=== PATIENT | female | born 1990 | race Caucasian/White ===

== ENCOUNTER 2018-06-19 09:07 | Emergency (ER) | payer BC ==
--- NOTE | 2018-06-19 09:17 | UC ---
Complaint Female HPI - HPI Summary HPI Summary: Pt with dysuria, urgency, frequency progressive x 3 days. No n/v. No abd pain. no back pain. No vaginal discharge, itching, burning. Pt with h/o pyelo several years ago. No UTI x 2 years. No other complaints Pt's medications reviewed this visit - History Of Current Complaint Stated Complaint: URINARY Hx Obtained From: Patient ?: No Onset/Duration: Gradual Onset Timing: Constant Severity Initially: Mild Severity Currently: Mild Pain Intensity: 2 - Allergies/Home Medications Allergies/Adverse Reactions: Allergies Allergy/AdvReac Type Severity Reaction Status Date / Time No Known Allergies Allergy Verified 06/19/18 09:23 Home Medications: Home Medications Lurasidone(*) [Latuda] 20 mg PO DAILY 06/19/18 [History Confirmed 06/19/18] Norgestimate-Ethinyl Estradiol [Ortho Tri-Cyclen Lo Tablet] 1 each PO DAILY 06/29 [History Confirmed 06/19/18] Pumpkin Seed Extract/Soy Germ [Azo Bladder Control Capsule] 1 tab PO ONCE [History Confirmed 06/19/18] PMH/Surg Hx/FS Hx/Imm Hx Previously Healthy: Yes - Surgical History Surgical History: None - Family History Known Family History: Positive: Other - non contributory - Social History Occupation: Employed Full-time - HR at [employer] Lives: With Family Alcohol Use: Occasionally Smoking Status (MU): Never Smoked Tobacco Review of Systems Constitutional: Negative Genitourinary: Dysuria, Hematuria, Urgency All Other Systems Reviewed And Are Negative: Yes Physical Exam - Summary Physical Exam Summary: Vital Signs Reviewed: Yes A+Ox3, no distress Eyes: Conjunctiva Clear ENT: Hearing grossly normal neck: supple Respiratory: Positive: No respiratory distress, No accessory muscle use CTA throughout no w/r Cardiovascular: skin color reflect adequate perfusion RRR nl s1 s2 abd: soft + BS no guarding, no rebound No CVA Musculoskeletal Exam: PACHECO x 4 without difficulty Neurological: Positive: Alert, ambulatory without difficulty Psychological: Positive: Normal Response To Family Skin: Positive: no rash, no ecchymosis Triage Information Reviewed: Yes Complaint Female Dx - Course Course Of Treatment: Patient presents with dysuria, urgency, and frequency progressive for 3 days. Patient without nausea vomiting. No fevers or chills. No back pain. Vital signs reviewed. Exam is not concerning. Urinalysis consistent with UTI. We'll prescribe Pyridium. We'll prescribe Keflex. Urine sent for culture. Motrin Tylenol. Hydrate. Return precautions discussed. Patient comfortable in agreement with plan. - Differential Dx/Diagnosis Provider Diagnoses: dysuria Discharge - Sign-Out/Discharge Documenting (check all that apply): Patient Departure - Discharge Plan Condition: Stable Disposition: HOME Prescriptions: Cephalexin CAP* [Keflex 500 CAP*] 500 mg PO BID #14 cap Phenazopyridine TAB* [Pyridium 100 mg TAB*] 100 mg PO TID PRN #9 tab PRN Reason: burning with urination Patient Education Materials: Urinary Tract Infection in Women (ED) Referrals: No Primary Care Phys,NOPCP [Primary Care Provider] - Additional Instructions: - stay well hydrated - drink plenty of non-alcoholic, non caffinated beverages - your urine will be further tested - if you require any changes to your treatment, we will contact you - this usually take 2 days - Contact your primary doctor to arrange a follow-up appointment next week. Contact your doctor or return with questions or concerns - Take your antibiotics exactly as prescribed until gone - Take pyridium as prescribed for discomfort. This will make your urine blaze orange - this is normal - Okay to alternate ibuprofen (Advil, Motrin) and Tylenol every 3 hours for pain. Take with food - Call your doctor or return with questions or concerns - Billing Disposition and Condition Condition: STABLE Disposition: Home
[2018-06-19 09:25] VITALS: BP 109/60
--- NOTE | 2018-06-20 16:19 | UC ---
- Progress Note Progress Note: > staph saprophyticus Pt on keflex please call to ensure improving - no routine sensitivities performed [facility] 06/20/18 [facility] Discharge - Sign-Out/Discharge Documenting (check all that apply): Post-Discharge Follow Up - Discharge Plan Condition: Stable Disposition: HOME Prescriptions: Cephalexin CAP* [Keflex 500 CAP*] 500 mg PO BID #14 cap Phenazopyridine TAB* [Pyridium 100 mg TAB*] 100 mg PO TID PRN #9 tab PRN Reason: burning with urination Patient Education Materials: Urinary Tract Infection in Women (ED) Referrals: No Primary Care Phys,NOPCP [Primary Care Provider] - Additional Instructions: - stay well hydrated - drink plenty of non-alcoholic, non caffinated beverages - your urine will be further tested - if you require any changes to your treatment, we will contact you - this usually take 2 days - Contact your primary doctor to arrange a follow-up appointment next week. Contact your doctor or return with questions or concerns - Take your antibiotics exactly as prescribed until gone - Take pyridium as prescribed for discomfort. This will make your urine blaze orange - this is normal - Okay to alternate ibuprofen (Advil, Motrin) and Tylenol every 3 hours for pain. Take with food - Call your doctor or return with questions or concerns - Billing Disposition and Condition Condition: STABLE Disposition: Home
== END 2018-06-19 09:48 | disposition home or self-care (01) ==
LOC: UCCORT 09:07
DX: R30.0 Dysuria (principal); N39.0 Urinary tract infection, site not specified; B95.7 Other staphylococcus as the cause of diseases classified elsewhere
CPT/HCPCS: 81003; 87077; 87086; 99202; G0463

== ENCOUNTER 2019-01-21 16:26 | Emergency (ER) | payer BC, OTHER ==
[2019-01-21 17:58] VITALS: BP 114/63
--- NOTE | 2019-01-21 18:08 | UC ---
UC General HPI - HPI Summary HPI Summary: 4 day hx sore throat, fever/chills, bodyaches, cough and nausea. exposed to strep throat. no asthma. - History of Current Complaint Chief Complaint: UCGeneralIllness Stated Complaint: SORE THROAT, FEVER, CHILLS Time Seen by Provider: 01/21/19 18:02 Hx Obtained From: Patient Hx Last Menstrual Period: 01/01/19 Pain Intensity: 5 Associated Signs & Symptoms: Negative: Chest Pain, Diarrhea, SOB, Vomiting - Allergy/Home Medications Allergies/Adverse Reactions: Allergies Allergy/AdvReac Type Severity Reaction Status Date / Time No Known Allergies Allergy Verified 01/21/19 17:58 Home Medications: Home Medications ARIPiprazole TAB* [Abilify TAB*] 10 mg PO BEDTIME 01/21/19 [History Confirmed 01/21/19] PMH/Surg Hx/FS Hx/Imm Hx Psychological History: Bipolar Disorder - Surgical History Surgical History: None - Family History Known Family History: Positive: Other - non contributory - Social History Occupation: Employed Full-time Alcohol Use: Occasionally Substance Use Type: None Smoking Status (MU): Never Smoked Tobacco - Immunization History Vaccination Up to Date: Yes Review of Systems All Other Systems Reviewed And Are Negative: Yes Constitutional: Positive: Fever, Chills ENT: Positive: Sore Throat Respiratory: Positive: Cough Gastrointestinal: Positive: Nausea Physical Exam Triage Information Reviewed: Yes Appearance: Well-Appearing Vital Signs: Initial Vital Signs Temp 97.5 F 01/21/19 17:54 Pulse 93 01/21/19 17:54 Resp 16 01/21/19 17:54 BP 114/63 01/21/19 17:54 Pulse Ox 98 01/21/19 17:54 Vital Signs Reviewed: Yes Eyes: Positive: Conjunctiva Clear ENT: Positive: Pharyngeal erythema - slight, TMs normal. Negative: Nasal congestion, Nasal drainage Neck: Positive: Supple, Nontender, No Lymphadenopathy Respiratory: Positive: Lungs clear, Normal breath sounds, No respiratory distress Cardiovascular: Positive: RRR, No Murmur Abdomen Description: Positive: Nontender, No Organomegaly, Soft Bowel Sounds: Positive: Present Musculoskeletal: Positive: ROM Intact Neurological: Positive: Alert Psychological: Positive: Age Appropriate Behavior Skin Exam: Normal Course/Dx - Course Course Of Treatment: rapid strep=negative. No current pcp but wants to f/u fadi on [facility] is on her list of providers - Diagnoses Provider Diagnosis: Influenza-like illness Discharge - Sign-Out/Discharge Documenting (check all that apply): Patient Departure All imaging exams completed and their final reports reviewed: No Studies - Discharge Plan Condition: Stable Disposition: HOME Patient Education Materials: Influenza (DC) Forms: *Work Release Additional Instructions: FOLLOW UP WITH [facility] SOON POSSIBLE TO ESTABLISH A PRIMARY CARE - Billing Disposition and Condition Condition: STABLE Disposition: Home
== END 2019-01-21 18:33 | disposition home or self-care (01) ==
LOC: UCCORT 16:26
DX: J11.1 Influenza due to unidentified influenza virus with other respiratory manifestations (principal)
CPT/HCPCS: 87651; 99211; G0463